=== PATIENT | male | born 1955 | race Caucasian/White ===

== ENCOUNTER 2018-09-26 09:30 | Inpatient (IN) | payer OTHER, BC ==
[~2018-09-26] VITALS: Ht 188 cm; Wt 90.7 kg
[2018-09-26 09:32] VITALS: BP 122/85
--- NOTE | 2018-09-26 09:32 | NUR ---
Patient transferred to bed 9 via wheelchair by tech. RN evaluating patient at bedside.
--- NOTE | 2018-09-26 09:42 | NUR ---
Dr. Christy evaluating patient at bedside.
--- NOTE | 2018-09-26 09:45 | NUR ---
PATIENT PRESENTS TO ED WITH C/O RIGHT HIP PAIN S/P MECHANICAL FALL ----ABRASIONS TO RIGHT KNUCKLES, RIGHT FLANK, RIGHT ELBOW SLIGHT SHORTENING WITH EXTERNAL ROTATION RLE ---PT STATES UNABLE TO INTERNAL ROTATE RIGHT ANKLE---+2 PEDAL PULSE <3 SEC CAP REFILL GRANDDAUGHTER AT BEDSIDE.. DENIES N/V/D; SKIN IS PINK/WARM/DRY; AAOX4 ; LUNGS CLEAR BL; HR EVEN AND REGULAR; PT DENIES ANY FEVER, CP, SOB, OR COUGH AT THIS TIME; PATIENT STATES PAIN OF 9/10 AT THIS TIME; VSS; PATIENT POSITIONED FOR COMFORT; HOB ELEVATED; BEDRAILS UP X2; BED DOWN. ER MD MADE AWARE OF PT STATUS.
[2018-09-26] MEDS ORDERED: NACL 0.9% 1,000 ML IV SCH (09:48)
[2018-09-26] MEDS ORDERED: NEOMYCIN/POLYMYXIN/BACITRACIN 0.9 GM/1 PKT TP ONE (09:50)
[2018-09-26] MEDS ORDERED: ONDANSETRON 4 MG/2 ML VIAL IVP ONE (09:50)
[2018-09-26] MEDS ORDERED: LORazepam 2 MG/ML VIAL IVP ONE (09:50)
[2018-09-26] MEDS ORDERED: MORPHINE SULFATE 4 MG/ML SYR IVP ONE (09:50)
--- NOTE | 2018-09-26 10:10 | NUR ---
1mg ativan wasted prior to infusino as written
[2018-09-26 10:22] LABS: BASOPHILS % (AUTO) 0.3 % (0.0-2.0); EOSINOPHILS # (AUTO) 0.4 K/uL (0-0.4); EOSINOPHILS % (AUTO) 4.3 % (0.0-4.0); HEMATOCRIT 41.7 % (36-52); HEMOGLOBIN 14.3 g/dL (12.0-18.0); LYMPHOCYTES # (AUTO) 1.4 K/uL (2.0-11.5); LYMPHOCYTES % (AUTO) 14.3 % (20.5-51.1); MEAN CORPUSCULAR HEMOGLOBIN 29 pg (27-31); MEAN CORPUSCULAR HGB CONC 34 g/dL (33-37); MEAN CORPUSCULAR VOLUME 85.6 fL (80-94); MONOCYTES # (AUTO) 0.6 K/uL (0.8-1.0); NEUTROPHILS # (AUTO) 7.5 K/uL (1.8-7.7); NEUTROPHILS % (AUTO) 75.1 % (42.2-75.2); PLATELET COUNT (AUTO) 254 K/uL (140-450); RED BLOOD CELL COUNT(AUTO) 4.87 MIL/uL (4.20-6.10); WHITE BLOOD COUNT (AUTO) 10.1 K/uL (4.8-10.8)
--- NOTE | 2018-09-26 10:26 | NUR ---
Patient taken to CT scan via gurney by Saber Hacer.
--- NOTE | 2018-09-26 10:27 | NUR ---
PT TO CT VIA [facility]
[2018-09-26 10:31] LABS: ANION GAP 14.1 (8-16); CARBON DIOXIDE 24.6 mmol/L (21-32); CREATININE 0.9 mg/dL (0.7-1.3); POTASSIUM 3.7 mmol/L (3.5-5.1)
[2018-09-26 10:35] LABS: PROTHROMBIN TIME 10.1 secs (10.8-13.4)
[2018-09-26 10:36] LABS: ALBUMIN 3.3 g/dL (3.4-5.0); TOTAL BILIRUBIN 0.4 mg/dL (0.0-1.0)
--- NOTE | 2018-09-26 10:44 | NUR ---
Patient returned from CT scan. RN re-evaluating patient at bedside.
--- NOTE | 2018-09-26 10:58 | NUR ---
hvac r tech at bedside.
[2018-09-26] MEDS ORDERED: HYDROmorphone 1 MG/ML AMP IVP ONE (11:35)
[2018-09-26] MEDS ORDERED: diphenhydrAMINE 50 MG/ML VIAL IVP ONE (11:35)
--- NOTE | 2018-09-26 11:49 | NUR ---
MEDICATED WRITTEN---WILL CONTINUE TO OBSERVE FOR PAIN CONTROL---PT CURRENTLY SELF REPOSITIONED TO COMFORT----FAMILY REMAINS AT BEDSIDE X2 SR UP----
[2018-09-26] MEDS ORDERED: DOCUSATE SODIUM 100 MG GELCAP PO PRN (12:15)
[2018-09-26] MEDS ORDERED: ACETAMINOPHEN 325 MG TAB PO PRN (12:15)
[2018-09-26] MEDS ORDERED: ONDANSETRON 4 MG/2 ML VIAL IM/IVP PRN (12:15)
[2018-09-26] MEDS ORDERED: MORPHINE SULFATE 2 MG/ML SYR IVP PRN (12:15)
--- NOTE | 2018-09-26 12:39 | NUR ---
PT'S GRANDDAUGHTER HAS BEEN IN ROOM WITH PT---ADMITS PT ASLEEP THIS TIME, HAS NOT COMPLIANED OF PAIN AT THIS TIME
--- NOTE | 2018-09-26 12:50 | NUR ---
RECEIVED REPORT FROM ED RN. PT IN STABLE CONDITION. AOX4. STATES TOLERABLE PAIN, NO NEED FOR MEDICATION. DX RT HIP FRACTURE. RT LEG IS EXTERNALLY ROTATED AND SHORTENED COMPARED TO LEFT LEG. ABRASIONS ON RT FLANK, RT HIP, RLE FROM FALL TODAY. LUNGS CTA. HEART RHYTHM REGULAR. BOWEL SOUNDS ACTIVE. PLACED ON FALL PRECAUTIONS. ALL SAFETY PRECAUTIONS IN PLACE, WILL CONTINUE TO MONITOR.
[2018-09-26 12:51] LABS: MAGNESIUM 1.9 mg/dL (1.8-2.4); PHOSPHORUS 1.8 mg/dL (2.5-4.9); THYROID STIMULATING HORMONE 2.6 uIU/mL (0.34-3.74)
--- NOTE | 2018-09-26 12:55 | NUR ---
Pt transferred to Med/Surg via [facility] TO ROOM 125 A; REPORT GIVEN TO PRIYA MANZANARES
[2018-09-26 13:01] VITALS: BP 135/84
[2018-09-26] MEDS: NACL 0.9% 1,000 ML IV SCH (13:29)
[2018-09-26] MEDS: MORPHINE SULFATE 2 MG/ML SYR IVP PRN ×2 (15:13→20:48)
--- NOTE | 2018-09-26 15:13 | NUR ---
PT C/O 01/08 RT HIP PAIN. ADMINISTERED MORPHINE PER MD ORDERS.
--- NOTE | 2018-09-26 15:37 | NUR ---
PHOTOS TAKEN OF ABRASIONS ON RT LOWER EXTREMITY, RIGHT KNUCKLES, RT ELBOW. WOUND CARE PROVIDED, AND COVERED WITH TEGADERM. PT C/O PAIN WHEN ATTEMPTING TO LOG ROLL HIM TO TAKE PHOTOS OF ABRASIONS ON RT FLANK (ABRASION THERE PER ED RN). DOES NOT WANT TO TURN AT THIS TIME. WILL ENDORSE.
[2018-09-26 16:00] VITALS: BP 147/80
[2018-09-26 16:08] LABS: APPEARANCE,URINE CLEAR (CLEAR); BILIRUBIN,URINE NEGATIVE (NEGATIVE); BLOOD, URINE NEGATIVE (NEGATIVE); COLOR,URINE YELLOW (YELLOW); LEUKOCYTE ESTERASE ,URINE NEGATIVE (NEGATIVE); NITRITE, URINE NEGATIVE (NEGATIVE); UGLUCOSE NEGATIVE (NEGATIVE)
[2018-09-26 16:20] LABS: BARBITURATE, URINE NEG. ng/ml (NEG <=200); BENZODIAZEPINE, URINE NEG. ng/mL (NEG <=200); CANNABINOID, URINE POS. ng/mL (NEG <=50); COCAINE, URINE NEG. ng/mL (NEG <=300); OPIATE, URINE NEG. ng/mL (NEG <=2000); PHENCYCLIDINE SCREEN,URINE NEG. ng/mL (NEG <=25)
--- NOTE | 2018-09-26 17:12 | NUR ---
SALONI RODRÍGUEZ WORKING ON OBTAINING EUCEDA'S TRACTION SETUP.
--- NOTE | 2018-09-26 17:49 | NUR ---
PATIENT REFUSED RACHEL CATH. ABLE TO URINATE VIA URINAL.
[2018-09-26] MEDS ORDERED: ALBUTEROL SULFATE/IPRATROPIU 3 ML SOL IH PRN (18:00)
[2018-09-26] MEDS: HYDROcodone/APAP 5/325 MG 1 TAB TAB PO PRN ×2 (18:01→23:02)
--- NOTE | 2018-09-26 19:21 | NUR ---
ENDORSED POC TO LEAD APPLICATION ARCHITECT RN. PT IN STABLE CONDITION. ENDORSED TO OBTAIN CONSENT WHEN DR. BROCK HAS EXPLAINED PROCEDURE TO PT. ENDORSED OF PLAN FOR EUCEDA'S TRACTION.
--- NOTE | 2018-09-26 19:22 | NUR ---
RECEIVED REPORT FROM DAY SHIFT NURSE PRIYA-RN AT BEDSIDE. PT RESTING IN BED, AOX4, ON ROOM AIR WITH LEFT AC #18G. DISCUSSED PLAN OF CARE AND PT VERBALIZED UNDERSTANDING. NO S/S OF RESPIRATORY DISTRESS OR DISCOMFORT NOTED AT THIS TIME. MULTIPLE WOUNDS DUE TO FALL- PLEASE SEE WOUND ASSESSMENT. BED IN LOWEST POSITION, BED BREAKS ON, BOTH SIDE RAILS UP AND FALL PRECAUTIONS IN PLACE. BEDSIDE TABLE AND CALL LIGHT ARE WITHIN REACH. WILL CONTINUE TO MONITOR.
[2018-09-26 20:00] VITALS: BP 119/70
--- NOTE | 2018-09-26 20:00 | NUR ---
VITAL SIGNS TAKEN AND TOLERATED WELL. PT C/O PAIN 12/08 AND WILL MEDICATE. NO S/S OF RESPIRATORY DISTRESS OR DISCOMFORT NOTED AT THIS TIME. WILL CONTINUE TO MONITOR.
--- NOTE | 2018-09-26 20:49 | NUR ---
SCHEDULED MEDICATION HEPARIN SUBQ GIVEN AND TOLERATED WELL. MEDICATED WITH MORPHINE FOR PAIN. PT TOLERATED WELL. NO S/S OF RESPIRATORY DISTRESS OR DISCOMFORT NOTED AT THIS TIME. WILL CONTINUE TO MONITOR.
[2018-09-26] MEDS ORDERED: ZOLPIDEM 5 MG TAB PO PRN (21:00)
--- NOTE | 2018-09-26 23:02 | NUR ---
PT CONTINUES TO C/O PAIN 11/08 AND MEDICATED WITH NORCO. PT TOLERATED WELL. NO S/S OF RESPIRATORY DISTRESS OR DISCOMFORT NOTED AT THIS TIME. WILL CONTINUE TO MONITOR.
[2018-09-27] VITALS (7 sets, daily range): BP systolic 97–139; BP diastolic 67–92
--- NOTE | 2018-09-27 | NUR ---
VITAL SIGNS TAKEN AND TOLERATED WELL. NO S/S OF RESPIRATORY DISTRESS OR DISCOMFORT NOTED AT THIS TIME. WILL CONTINUE TO MONITOR.
--- NOTE | 2018-09-27 02:00 | NUR ---
PT CONTINUES TO SLEEP IN BED. NO S/S OF RESPIRATORY DISTRESS OR DISCOMFORT NOTED AT THIS TIME. WILL CONTINUE TO MONITOR.
--- NOTE | 2018-09-27 04:00 | NUR ---
VITAL SIGNS TAKEN AND TOLERATED WELL. NO S/S OF RESPIRATORY DISTRESS OR DISCOMFORT NOTED AT THIS TIME. WILL CONTINUE TO MONITOR.
[2018-09-27] MEDS: NACL 0.9% 1,000 ML IV SCH ×2 (04:15→21:32)
--- NOTE | 2018-09-27 06:00 | NUR ---
PT RESTING IN BED. NO S/S OF RESPIRATORY DISTRESS OR DISCOMFORT NOTED AT THIS TIME. WILL CONTINUE TO MONITOR.
--- NOTE | 2018-09-27 06:50 | NUR ---
DR. BROCK IN TO SEE PT.
--- NOTE | 2018-09-27 06:53 | NUR ---
HAD ORDER FOR BUCKS TRACTION.I PUT IT W/7 LBS. CAME .I ASKED HIM IF BUCKS TRACTION I PUT IT CORRECT AND HE SAID YES.PT WILL HAVE SURGERY VANESSA PER .
--- NOTE | 2018-09-27 07:14 | NUR ---
ENDORSED PT CARE TO DAY SHIFT NURSE MICHAEL FOR CONTINUITY OF CARE.
--- NOTE | 2018-09-27 07:15 | NUR ---
RECEIVED REPORT FROM NIGHT NURSE. PATIENT IS ALERT AWAKE AND ORIENTED X4. RESPIRATIONS ARE EVEN AND UNLABORED WITH NO SIGNS OF DISTRESS. IV IS INTACT, PATENT AND INFUSING IVF. PATIENT HAS EUCEDA TRACTION IN PLACE. COMPLAINS OF PAIN AT FRACTURE SITE. PLAN OF CARE WAS REVIEWED WITH PATIENT, HE VERBALIZED UNDERSTANDING. SAFETY MEASURE IN PLACE, BED IS IN LOW POSITION WITH CALL LIGHT WITHIN REACH. WILL CONTINUE TO MONITOR.
--- NOTE | 2018-09-27 08:35 | NUR ---
PATIENT HAS BEEN SCREENED AND CATEGORIZED MODERATE NUTRITION RISK. PATIENT WILL BE SEEN WITHIN 3-5 DAYS OF ADMISSION. 09/29/18JARED GONZALEZ RD
[2018-09-27] MEDS: MORPHINE SULFATE 2 MG/ML SYR IVP PRN ×3 (08:36→20:29)
[2018-09-27 08:37] LABS: ANION GAP 10.5 (8-16); CREATININE 0.8 mg/dL (0.7-1.3); POTASSIUM 3.5 mmol/L (3.5-5.1)
[2018-09-27 08:45] LABS: CHOL/HDL RATIO 3.3 (1-4.5)
[2018-09-27 08:51] LABS: BASOPHILS % (AUTO) 0.2 % (0.0-2.0); EOSINOPHILS # (AUTO) 0.1 K/uL (0-0.4); EOSINOPHILS % (AUTO) 0.9 % (0.0-4.0); HEMOGLOBIN 13.9 g/dL (12.0-18.0); LYMPHOCYTES # (AUTO) 1.3 K/uL (2.0-11.5); LYMPHOCYTES % (AUTO) 11.1 % (20.5-51.1); MEAN CORPUSCULAR HEMOGLOBIN 29 pg (27-31); MEAN CORPUSCULAR HGB CONC 34 g/dL (33-37); MEAN CORPUSCULAR VOLUME 85.6 fL (80-94); MONOCYTES # (AUTO) 0.9 K/uL (0.8-1.0); MONOCYTES % (AUTO) 7.8 % (1.7-9.3); NEUTROPHILS # (AUTO) 9.7 K/uL (1.8-7.7); PLATELET COUNT (AUTO) 229 K/uL (140-450); RED BLOOD CELL COUNT(AUTO) 4.79 MIL/uL (4.20-6.10); RED CELL DISTRIBUTION WIDTH 12.8 % (11.6-13.7); WHITE BLOOD COUNT (AUTO) 12.1 K/uL (4.8-10.8)
[2018-09-27] MEDS ORDERED: MEDICATION REC. PHARMACY CONS. 1 EA MISC MC PRN ×2 (09:15)
--- NOTE | 2018-09-27 09:50 | NUR ---
TOOK PATIENT TO RADIOLOGY FOR CT OF CHEST, ABD, AND PELVIS. PATIENT TOLERATED PROCEDURE WELL, NOW RESTING. WILL CONTINUE TO MONITOR.
[2018-09-27] MEDS ORDERED: MAGNESIUM OXIDE 400 MG TAB PO ONE (10:30)
[2018-09-27] MEDS ORDERED: SODIUM PHOS / POTASSIUM PHOS 1 PKT PDR PO SCH (10:42)
[2018-09-27] MEDS: NEOMYCIN/POLYMYXIN/BACITRACIN OIN 15 GM TUBE TP SCH (11:40)
[2018-09-27] MEDS: SODIUM PHOS / POTASSIUM PHOS 1 PKT PDR PO SCH ×2 (13:14→18:08)
[2018-09-27 13:38] LABS: T4 (THYROXINE) 6.8 ug/dL (4.5-12.0)
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
[2018-09-27] MEDS ORDERED: APAP/BUTAL/CAFF 325/50/40 MG 1 TAB PO SCH (18:00)
--- NOTE | 2018-09-27 19:29 | NUR ---
GAVE REPORT TO BUILDING DISMANTLER NURSE. PATIENT IS STABLE.
--- NOTE | 2018-09-27 19:30 | NUR ---
ASSUMED CARE OF PATIENT, AWAKE, ALERT AND ORIENTED. NO COMPLAINS. FAMILY AT BEDSIDE. CALL LIGHT WITHIN REACH.
--- NOTE | 2018-09-27 20:00 | NUR ---
VITAL SIGNS STABLE. AFEBRILE. CARE BOARD UPDATED. PLAN OF CARE DISCUSSED WITH PATIENT AND FAMILY MEMBER, VERBALIZED UNDERSTANDING WELL. CALL LIGHT WITHIN REACH.
--- NOTE | 2018-09-27 21:00 | NUR ---
DUE MEDS GIVEN. PAIM MEDS GIVEN ORDERED. CALL LIGHT WITHIN REACH.
--- NOTE | 2018-09-27 23:47 | NUR ---
VITAL SIGNS STABLE. NPO FOR SURGERY IDALMIS. AFEBRILE. CALL LIGHT WITHIN REACH.
[2018-09-27] MEDS: HYDROcodone/APAP 5/325 MG 1 TAB TAB PO PRN (23:53)
[2018-09-28] MEDS: MORPHINE SULFATE 2 MG/ML SYR IVP PRN ×5 (00:27→23:41)
[2018-09-28 04:29] VITALS: BP 102/78
--- NOTE | 2018-09-28 04:32 | NUR ---
VITAL SIGNS STABLE. NPO NOW FOR SURGERY IN AM. CALL LIGHT WITHIN REACH. CONSENT SIGNED FOR SURGERY.
--- NOTE | 2018-09-28 06:31 | NUR ---
NO COMPLAINS. NPO FOR SURGERY TODAY AT 1300. CALL LIGHT WITHIN REACH. PREOP CHECKLIST INITIATED.
[2018-09-28 06:51] LABS: ANION GAP 11.8 (8-16); CARBON DIOXIDE 25.8 mmol/L (21-32); CREATININE 0.8 mg/dL (0.7-1.3); POTASSIUM 3.6 mmol/L (3.5-5.1)
[2018-09-28 06:54] LABS: PHOSPHORUS 2.6 mg/dL (2.5-4.9)
--- NOTE | 2018-09-28 07:17 | NUR ---
ENDORSED CARE AT BEDSIDE WITH LUZ MANZANARES, PATIENT IN STABLE CONDITION.
--- NOTE | 2018-09-28 07:18 | NUR ---
Received bedside report from pm nurse Noemi. Pt resting in bed, awake, no signs of distress. RLE Lock's traction in place with 7lb weight hanging freely. Call light within reach.
[2018-09-28 07:29] LABS: BASOPHILS % (AUTO) 0.2 % (0.0-2.0); EOSINOPHILS # (AUTO) 0.6 K/uL (0-0.4); EOSINOPHILS % (AUTO) 5.2 % (0.0-4.0); HEMATOCRIT 41.9 % (36-52); HEMOGLOBIN 14.4 g/dL (12.0-18.0); LYMPHOCYTES # (AUTO) 1.5 K/uL (2.0-11.5); LYMPHOCYTES % (AUTO) 13.5 % (20.5-51.1); MEAN CORPUSCULAR HEMOGLOBIN 30 pg (27-31); MEAN CORPUSCULAR HGB CONC 34 g/dL (33-37); MEAN CORPUSCULAR VOLUME 86.1 fL (80-94); MONOCYTES % (AUTO) 8.8 % (1.7-9.3); NEUTROPHILS # (AUTO) 7.9 K/uL (1.8-7.7); NEUTROPHILS % (AUTO) 72.3 % (42.2-75.2); PLATELET COUNT (AUTO) 215 K/uL (140-450); RED BLOOD CELL COUNT(AUTO) 4.87 MIL/uL (4.20-6.10); RED CELL DISTRIBUTION WIDTH 12.9 % (11.6-13.7); WHITE BLOOD COUNT (AUTO) 10.9 K/uL (4.8-10.8)
[2018-09-28 08:00] VITALS: BP 100/65
--- NOTE | 2018-09-28 09:07 | NUR ---
Heparin held d/t surgical procedure this pm.
[2018-09-28] MEDS: NEOMYCIN/POLYMYXIN/BACITRACIN OIN 15 GM TUBE TP SCH (09:51)
--- NOTE | 2018-09-28 11:30 | NUR ---
Report given to nurse Abril. Pt in bed, no signs of distress.
--- NOTE | 2018-09-28 11:45 | NUR ---
RECEIVED BEDSIDE REPORT FROM LEIGHTON WEEKS FOR CONTINUITY OR CARE. PATIENT IS RESTING ON BED AT THIS TIME. RESPIRATION EVEN AND UNLABORED. ON RA. NO SIGNS OF DISTRESS NOTED. EUCEDA'S TRACTION INN PLACE WITH 7 LB WEIGHT HANDING FREELY. INSTRUCTED PATIENT TO USE THE CALL LIGHT FOR ANY ASSISTANCE AND PATIENT WAS AWARE. BED IN LOW POSITION AND CALL LIGHT WITHIN REACH.
[2018-09-28 12:00] VITALS: BP 112/70
--- NOTE | 2018-09-28 12:55 | NUR ---
PATIENT IS OFF UNIT TO THE OR ACCOMPANIED BY OR NURSE ORNELAS. PATIENT IS IN A STABLE CONDITION.
[2018-09-28] MEDS ORDERED: BUPIVACAINE-MPF 0.25% 30 ML VIAL INJ ONE (12:58)
[2018-09-28] MEDS ORDERED: BACITRACIN 50000 UNITS/1 VIAL ONE (12:58)
[2018-09-28] MEDS ORDERED: PROPOFOL 200 MG/20 ML VIAL IV ONE (13:15)
[2018-09-28] MEDS ORDERED: DEXAMETHASONE 4 MG/ML VIAL ONE (13:15)
[2018-09-28] MEDS ORDERED: DESFLURANE 240 ML BTL INH ONE (13:15)
[2018-09-28] MEDS ORDERED: ONDANSETRON 4 MG/2 ML VIAL ONE ×2 (13:15→15:40)
[2018-09-28] MEDS ORDERED: fentaNYL 0.05 MG/ML VIAL ONE (13:23)
[2018-09-28] MEDS ORDERED: HYDROmorphone 1 MG/ML AMP IVP PRN (14:15)
[2018-09-28] MEDS ORDERED: ONDANSETRON 4 MG/2 ML VIAL IVP PRN (14:15)
--- NOTE | 2018-09-28 15:50 | NUR ---
PATIENT CAME BACK TO FLOOR ACCOMPANIED WITH OR NURSE JOHNSON. VITAL SIGNS TAKEN; TEMP. 97.8, BP 121/71, SPO2 95% ON RA, PULSE 88, AND RR 18. PATIENT DENIES PAIN AT THIS TIME. STATED THAT HE FEELS DISCOMFORT ON SURGICAL SITE, BUT TOLERABLE. PATIENT COMPLAINED THAT HIS THROAT IS DRY, ICE CHIPS PROVIDED. TELE MONITOR IN PLACE. SAFETY MEASURES IN PLACE. BED IN LOW POSITION AND CALL LIGHT WITHIN REACH.
[2018-09-28 16:00] VITALS: BP 121/71
[2018-09-28] MEDS: NACL 0.9% 1,000 ML IV SCH (16:22)
--- NOTE | 2018-09-28 16:24 | NUR ---
PATIENT COMPLAINED OF 7/10 PAIN ON HIS SURGICAL SITE, MEDICATED WITH PRN MORPHINE. PATIENT TOLERATED WELL. SAFETY MEASURES IN PLACE.
--- NOTE | 2018-09-28 16:45 | NUR ---
EDUCATED PATIENT ON HOW TO USE THE INCENTIVE SPIROMETER, AND INSTRUCTED PATIENT TO PRACTICE 3X A DAY AND OR WHEN AWAKE AND TOLERATED. PATIENT VERBALIZED UNDERSTANDING. PATIENT IS TALKING TO FAMILY MEMBERS AT BEDSIDE. NO SIGNS OF DISTRESS NOTED. SAFETY MEASURES IN PLACE.
--- NOTE | 2018-09-28 16:48 | NUR ---
FAXED THE REQUEST FOR SNF TO [facility] [phone]
--- NOTE | 2018-09-28 17:50 | NUR ---
IV INFILTRATED. D/C IV AND CANNULA INTACT, NO BLEEDING AT IV SITE. STARTED NEW IV ON LFA 22G, CLEAN AND PATENT, CONTINUING INFUSE PER MD ORDER. PATIENT TOLERATED WELL. NO SIGNS OF STRESS NOTED. FAMILY IS AT BEDSIDE. INSTRUCTED PATIENT TO USE THE CALL LIGHT FOR ANY ASSISTANCE.
--- NOTE | 2018-09-28 18:00 | NUR ---
DR WOODS IS TALKING TO PATIENT AND PATIENT'S FAMILY AT BEDSIDE. NO SIGNS OF DISTRESS NOTED. SAFETY MEASURES IN PLACE.
--- NOTE | 2018-09-28 18:36 | NUR ---
PATIENT IS TALKING TO FAMILY AT BEDSIDE. NO SIGNS OF DISTRESS NOTED. TELE MONITOR IN PLACE. SAFETY MEASURES IN PLACE. BED IN LOW POSITION AND CALL LIGHT WITHIN REACH.
--- NOTE | 2018-09-28 19:11 | NUR ---
ENDORSED PATIENT AT BEDSIDE TO AUDIOMETRIST NURSE FOR CONTINUITY OF CARE. PATIENT IS IN STABLE CONDITION.
--- NOTE | 2018-09-28 19:13 | NUR ---
Received endorsement from AM shift RN; patient A/Ox4, able to make needs known, bedbound s/p right hip bipolar prosthesis. Patient watching TV. Introduced self, updated board. No SOB or distress noted, on room air. IV site left forearm, 22 gauge, intact and infusing IVF at 60mL/hr. Skin noted with multiple abrasions. Bed in the lowest position, call light within reach. Initial assessment done. Will continue to monitor.
[2018-09-28 20:00] VITALS: BP 126/78
--- NOTE | 2018-09-28 21:01 | NUR ---
Vitals taken, meds given, tolerated well. Will continue to monitor. Addendum: 09/29/18 at 0106 by Pierre Suero RN Correction - Due meds given
--- NOTE | 2018-09-28 23:45 | NUR ---
Due meds given, vitals taken. No distress noted.
[2018-09-29] VITALS: BP 108/71
--- NOTE | 2018-09-29 02:50 | NUR ---
Rounds done, patient asleep, eyes closed, visible chest rise and fall noted.
[2018-09-29] MEDS: HYDROcodone/APAP 5/325 MG 1 TAB TAB PO PRN ×3 (03:09→20:52)
[2018-09-29] MEDS: MELATONIN 3 MG TAB PO PRN (03:09)
[2018-09-29 04:00] VITALS: BP 107/69
--- NOTE | 2018-09-29 04:30 | NUR ---
Vitals taken, no distress noted. Assisted patient to go to the bathroom. Patient had a BM at this time. Addendum: 09/29/18 at 0451 by Pierre Suero RN Addendum - charted on wrong patient.
--- NOTE | 2018-09-29 04:36 | NUR ---
Vitals taken, no SOB or distress noted. Patient asleep, visible chest rise and fall noted.
[2018-09-29] MEDS: NACL 0.9% 1,000 ML IV SCH (05:55)
[2018-09-29 06:29] LABS: BASOPHILS % (AUTO) 0.2 % (0.0-2.0); EOSINOPHILS % (AUTO) 0.2 % (0.0-4.0); HEMATOCRIT 39.3 % (36-52); HEMOGLOBIN 13.4 g/dL (12.0-18.0); LYMPHOCYTES # (AUTO) 1.5 K/uL (2.0-11.5); LYMPHOCYTES % (AUTO) 10.1 % (20.5-51.1); MEAN CORPUSCULAR HEMOGLOBIN 29 pg (27-31); MEAN CORPUSCULAR HGB CONC 34 g/dL (33-37); MEAN CORPUSCULAR VOLUME 85.7 fL (80-94); MONOCYTES # (AUTO) 1.6 K/uL (0.8-1.0); MONOCYTES % (AUTO) 11.3 % (1.7-9.3); NEUTROPHILS # (AUTO) 11.3 K/uL (1.8-7.7); NEUTROPHILS % (AUTO) 78.2 % (42.2-75.2); PLATELET COUNT (AUTO) 246 K/uL (140-450); RED BLOOD CELL COUNT(AUTO) 4.59 MIL/uL (4.20-6.10); RED CELL DISTRIBUTION WIDTH 12.6 % (11.6-13.7); WHITE BLOOD COUNT (AUTO) 14.4 K/uL (4.8-10.8)
--- NOTE | 2018-09-29 06:41 | NUR ---
Frequent checks made; patient is watching TV. No distress noted.
[2018-09-29 06:47] LABS: ANION GAP 10.2 (8-16); CARBON DIOXIDE 26.7 mmol/L (21-32); CREATININE 0.9 mg/dL (0.7-1.3); POTASSIUM 3.9 mmol/L (3.5-5.1)
[2018-09-29 06:52] LABS: MAGNESIUM 1.9 mg/dL (1.8-2.4); PHOSPHORUS 3.9 mg/dL (2.5-4.9)
--- NOTE | 2018-09-29 07:03 | NUR ---
Endorsed patient to AM shift RN for continuity of care. Patient in stable condition.
--- NOTE | 2018-09-29 07:05 | NUR ---
RECEIVED BEDSIDE REPORT FROM SLITTER OPERATOR RN FOR CONTINUITY OF CARE. PT IN STABLE CONDITION. AOX4. INTERACTING APPROPRIATELY. COOPERATIVE. STATES TOLERABLE PAIN AT SURGICAL SITE. S/P RT HIP BIPOLAR PROTHESIS SURGERY. DRESSING C/D/I. NO S/S DISTRESS. RESPIRATIONS EVEN AND UNLABORED. HEART RHYTHM REGULAR. ACTIVE BS IN ALL QUADRANTS. ABDOMEN SOFT AND NON-DISTENDED. ABRASIONS ON SKIN THROUGHOUT FROM FALL. CSM INTACT. PEDAL PULSES 2+ BILATERALLY. NO EDEMA. ABDUCTION PILLOW IN PLACE. IV SITE PATENT AND ASYMPTOMATIC, INFUSING IVF PER MD ORDERS. ALL SAFETY PRECAUTIONS IN PLACE, WILL CONTINUE TO MONITOR.
[2018-09-29 08:00] VITALS: BP 114/70
[2018-09-29] MEDS: NEOMYCIN/POLYMYXIN/BACITRACIN OIN 15 GM TUBE TP SCH (08:33)
--- NOTE | 2018-09-29 08:41 | NUR ---
SCHEDULED MEDICATIONS ADMINISTERED. PT RESTING IN BED, NO C/O PAIN OR DISCOMFORT. INTERACTING APPROPRIATELY. ALL SAFETY PRECAUTIONS IN PLACE, WILL CONTINUE TO MONITOR.
--- NOTE | 2018-09-29 09:30 | NUR ---
PT DID IS WHILE I WAS IN THE ROOM, PT WAS ABLE TO DO 3000ML WITH NO DISTRESS. PT WAS WELL & RELAXED & SAID HE DID NOT FEEL ANY SOB. WILL KEEP MONITORING
--- NOTE | 2018-09-29 09:34 | NUR ---
PT UP IN BED, WITH PHYSICAL THERAPY AT SIDE.
--- NOTE | 2018-09-29 10:35 | NUR ---
PATIENT STATES HE IS COMFORTABLE IN CHAIR. SPOKE WITH PHYSICAL THERAPIST SCOTT JUST NOW-SHE WILL BE BACK TO HELP PATIENT BACK TO BED LATER.
[2018-09-29 12:00] VITALS: BP 101/67
[2018-09-29] MEDS: MORPHINE SULFATE 2 MG/ML SYR IVP PRN (12:10)
--- NOTE | 2018-09-29 12:13 | NUR ---
ADMINISTERED MORPHINE FOR C/O 03/10 PAIN. PATIENT HAD JUST WALKED WITH PHYSICAL THERAPY. OFFERED COLACE- PT HAS NOT HAD BM SINCE ADMISSION. PT REFUSED.
--- NOTE | 2018-09-29 12:31 | NUR ---
Spoke with Eve Bajwa insurance adjustor starting today pt is not covered with [facility]. Pt has [employer] but he has his card at home. His grand daughter Marina will look for it and give it to the pt. Eve Bajwa will follow up this afternoon with the patient's [employer] card and verify it once she gets it from the pt.
--- NOTE | 2018-09-29 13:17 | NUR ---
PT RESTING IN BED, WITH GRANDDAUGHTER AT BEDSIDE. IN STABLE CONDITION. ALL SAFETY PRECAUTIONS IN PLACE, WILL CONTINUE TO MONITOR.
--- NOTE | 2018-09-29 14:39 | NUR ---
PT STATES PAIN IS WELL-CONTROLLED NOW.
--- NOTE | 2018-09-29 15:11 | NUR ---
Clinicals faxed to [facility] .
--- NOTE | 2018-09-29 15:54 | NUR ---
PT CONTINUES TO STATE TOLERABLE PAIN LEVELS.
[2018-09-29 16:00] VITALS: BP 101/66
--- NOTE | 2018-09-29 19:25 | NUR ---
ENDORSED POC TO LAND DEPARTMENT HEAD RN. PT IN STABLE CONDITION.
--- NOTE | 2018-09-29 19:26 | NUR ---
RECEIVED REPORT FROM DAY SHIFT RN. PATIENT STABLE WITHOUT DISTRESS ON RA.
--- NOTE | 2018-09-29 19:27 | NUR ---
RECEIVED REPORT FROM DAY SHIFT RN, PATIENT STABLE ON RA, ABDUCTION PILLOW IN PLACE. NO COMPLAINT OF PAIN AT THIS TIME.
[2018-09-29 20:00] VITALS: BP 113/71
--- NOTE | 2018-09-29 20:52 | NUR ---
PATIENT C/O PAIN 09/08 WILL MEDICATE PER PRN ORDERS. Addendum: 09/29/18 at 2230 by Adriana Phillips RN ALSO ADMINSTERED SCHEDULED MEDICATION AT THIS TIME.
--- NOTE | 2018-09-29 22:30 | NUR ---
PATIENT RESTING COMFORTABLY IN BED, WITH NO C/O PAIN AT THIS TIME.
[2018-09-30 00:04] VITALS: BP 106/61
--- NOTE | 2018-09-30 00:07 | NUR ---
VITAL SIGNS STABLE, PATIENT RESTING, NO SIGNS OF DISTRESS ON RA.
[2018-09-30] MEDS: NACL 0.9% 1,000 ML IV SCH ×2 (01:00→16:12)
--- NOTE | 2018-09-30 02:30 | NUR ---
EMPTIED URINAL, PATIENT WAS SLEEPIGN BUT WOKE EASILY. NO SIGNS OF DISTRESS. NO C/O PAIN.
--- NOTE | 2018-09-30 04:06 | NUR ---
PATIENT SLEEPING, NO SIGNS OF DISTRESS ON RA.
--- NOTE | 2018-09-30 05:55 | NUR ---
PATIENT SLEEPING, NO SIGNS OF DISTRESS ON RA. WILL CONTINUE TO MONITOR.
--- NOTE | 2018-09-30 06:30 | NUR ---
PATIENT AWAKE. NO C/O PAIN, NO DISTRESS ON ROOM AIR.
[2018-09-30 06:50] LABS: MAGNESIUM 1.9 mg/dL (1.8-2.4); PHOSPHORUS 2.6 mg/dL (2.5-4.9)
[2018-09-30 07:01] LABS: ANION GAP 13.6 (8-16); CARBON DIOXIDE 23.9 mmol/L (21-32); POTASSIUM 3.5 mmol/L (3.5-5.1)
[2018-09-30 07:18] LABS: BASOPHILS % (AUTO) 0.3 % (0.0-2.0); EOSINOPHILS # (AUTO) 0.5 K/uL (0-0.4); EOSINOPHILS % (AUTO) 4.6 % (0.0-4.0); HEMATOCRIT 36.3 % (36-52); HEMOGLOBIN 12.5 g/dL (12.0-18.0); LYMPHOCYTES # (AUTO) 1.7 K/uL (2.0-11.5); LYMPHOCYTES % (AUTO) 16.5 % (20.5-51.1); MEAN CORPUSCULAR HEMOGLOBIN 30 pg (27-31); MEAN CORPUSCULAR HGB CONC 35 g/dL (33-37); MEAN CORPUSCULAR VOLUME 86.4 fL (80-94); MONOCYTES # (AUTO) 0.8 K/uL (0.8-1.0); MONOCYTES % (AUTO) 7.9 % (1.7-9.3); NEUTROPHILS # (AUTO) 7.2 K/uL (1.8-7.7); NEUTROPHILS % (AUTO) 70.7 % (42.2-75.2); PLATELET COUNT (AUTO) 239 K/uL (140-450); RED CELL DISTRIBUTION WIDTH 12.8 % (11.6-13.7); WHITE BLOOD COUNT (AUTO) 10.2 K/uL (4.8-10.8)
--- NOTE | 2018-09-30 07:20 | NUR ---
GAVE BEDSIDE REPORT TO DAY SHIFT RN. PATIENT IN STABLE CONDITION.
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
[2018-09-30 08:00] VITALS: BP 114/69
[2018-09-30] MEDS: NEOMYCIN/POLYMYXIN/BACITRACIN OIN 15 GM TUBE TP SCH (09:00)
[2018-09-30] MEDS ORDERED: HYDR-5092 PO (09:02)
[2018-09-30] MEDS ORDERED: XAR10 PO (09:02)
--- NOTE | 2018-09-30 09:06 | NUR ---
Called [facility] spoke with Tabby SOUZA. Patient doesn't need AUTH for out patient PT.
--- NOTE | 2018-09-30 09:09 | NUR ---
Called [facility] ext [phone] spoke with Johanne from out patient. Patient needs to bring the RX for PT and make appointment. Hours for PT M-F starts from [phone] and saturdays [phone].
[2018-09-30] MEDS: HYDROcodone/APAP 5/325 MG 1 TAB TAB PO PRN ×2 (09:13→13:56)
--- NOTE | 2018-09-30 09:26 | NUR ---
PT IS WORKING WITH PHYS THERAPY AT THIS TIME.
--- NOTE | 2018-09-30 09:47 | NUR ---
NOTIFIED DR TURCIOS OF PT'S NEED TO HAVE A WALKER AND BEDSIDE COMMODE AT HOME. HE SAID HE WILL HAVE NAVAL INSPECTOR TO OBTAIN THESE ITEMS FOR PT.
--- NOTE | 2018-09-30 10:11 | NUR ---
PAGED DR BROCK REGARDING WHAT HE WOULD LIKE TO BE DONE WITH PT'S SURGICAL DRESSING OVER HIS R HIP INCISION, PT IS DISCHARGING TODAY. AWAITING CALL BACK.
--- NOTE | 2018-09-30 11:00 | NUR ---
PT'S FAMILY VISITING AT BEDSIDE AND TALKING WITH DR TURCIOS.
--- NOTE | 2018-09-30 11:14 | NUR ---
PHOTOS TAKEN OF PT'S INCISION AND ORIGINAL ABRASIONS FOR DOCUMENTATION. INCISION COVERED BY A NEW CLEAN DRY DRESSING.
--- NOTE | 2018-09-30 11:43 | NUR ---
JUST SPOKE WITH DR TURCIOS, HE SAYS THAT PT IS GOING TO BE TRANSFERRED TO [facility] FOR PHYSICAL THERAPY, INSTEAD OF DC HOME. WAITING FOR A BED AT [facility]. I ALREADY REMOVED PT'S IV IN ANTICIPATION OF DC, DR TURCIOS SAYS NO NEED TO START ANOTHER IV, SINCE PT IS NOT GETTING ANY IV MEDICATIONS.
--- NOTE | 2018-09-30 12:37 | NUR ---
Spoke with Pat Admission Liason from [facility] . They will get AUTH from [facility] and they will call me back for the room number.
--- NOTE | 2018-09-30 13:17 | NUR ---
Spoke with Georgia SOUZA [facility] , I asked her for transportation AUTH for pt to be transported to [facility]. Per Georgia SOUZA pt doesn't need an AUTH for transportation. She referred me to benefits and spoke with Johanne. Per Johanne pt will pay 10% for the transportation after deductibles are met. Informed pt about this payment and pt will go to [facility] with one of his family member by car.
--- NOTE | 2018-09-30 13:44 | NUR ---
PT WALKING WITH PHYSICAL THERAPY.
--- NOTE | 2018-09-30 13:56 | NUR ---
Just spoke with Pat Admission Liason from [facility] . They are just waiting for the AUTH from [facility]. They will call me and if after 1630 they will call [facility] nurses station for the room number.
[2018-09-30 15:41] VITALS: BP 104/66
[2018-09-30] MEDS ORDERED: PNEUMOCOCCAL VACCINE 23 MCG/0.5 ML VIAL IMVAC SCH (16:15)
--- NOTE | 2018-09-30 16:22 | NUR ---
PNEUMONIA VACCINE ADMINISTERED IN THE L DELTOID.
--- NOTE | 2018-09-30 19:30 | NUR ---
PT ENDORSED TO HAT FINISHING MATERIALS PREPARER NURSE IN STABLE CONDITION.
--- NOTE | 2018-09-30 19:31 | NUR ---
RECEIVED PT IN STABLE CONDITION FROM AM NURSE. PT IS AWAKE,ALERT AND ORIENTED X4. MED SURG PT. BEDREST . S/P RT HIP ORIF. WITH DRESSING DRY AND CLEAN ON THE RT HIP. ABDUCTOR PILLOW IN PLACED. DENIES ANY DISCOMFORT NOR PAIN NOTED. NO IV ACCESS. [facility] AND PT IS AWARE. BED ON LOWEST POSITION. SIDE RIALS UP X2.FREQUENT ROUNDS NEEDED. CALL LIGHT WITHIN EASY REACH. WILL CONTINUE TO MONITOR.
--- NOTE | 2018-09-30 20:49 | NUR ---
PT HAD THE HEPARIN SUBQ ON THE LT LOWER ABDOMEN. NO C/O ANY PAIN . WILL CONTINUE TO MONITOR.
--- NOTE | 2018-09-30 22:00 | NUR ---
ABLE TOO LIT BUTTOCKS FROM THE BED WITH TRAPEZE. STILL USED INCENTIVE SPIROMETER .
[2018-10-01] VITALS: BP 108/80
--- NOTE | 2018-10-01 | NUR ---
PT STILL AWAKE. WATCHING TV. ASKED IF IN PAIN AND HE SAID NO. WILL CONTINUE TO MONITOR.
[2018-10-01] MEDS: HYDROcodone/APAP 5/325 MG 1 TAB TAB PO PRN ×2 (00:48→08:54)
--- NOTE | 2018-10-01 00:48 | NUR ---
PT IS AWAKE AND C/O SOME DISCOMFORT/PAIN FROM RT HIP SURGERY. MEDICATED WITH NORCO ORDERED. WILL CONTINUE TO MONITOR.,
--- NOTE | 2018-10-01 01:48 | NUR ---
MADE ROUNDS ,PT SLEEPING WELL. NO S/S OF ANY DISCOMFORT NOTED.
--- NOTE | 2018-10-01 02:30 | NUR ---
PT AWAKE. DUE TO PT STILL HERE WAITING FOR BED TO [facility], A NEW IV ACCESS STARTED ON THE LT HAND G#22, CLEAR AND PATENT.
--- NOTE | 2018-10-01 04:30 | NUR ---
PT IS ASLEEP. NO S/S OF ANY DISCOMFORT NOR PAIN NOTED.
--- NOTE | 2018-10-01 07:09 | NUR ---
WILL ENDORSE PT IN STABLE CONDITION TO AM NURSE FOR CONTINUITY OF CARE.
--- NOTE | 2018-10-01 07:10 | NUR ---
RECEIVED REPORT FROM LAW ENFORCEMENT OFFICER NURSE. PATIENT IS ALERT AND ORIENTED X4. DENIES PAIN AT THIS TIME. RESPIRATIONS ARE EVEN AND UNLABORED. IV INTACT, PATENT, INFUSING IVF. PLAN OF CARE WAS REVIEWED WITH PATIENT. PATIENT VERBALIZED UNDERSTANDING. SAFETY MEASURES IN PLACE, CALL LIGHT WITHIN REACH. WILL CONTINUE TO MONITOR.
[2018-10-01 08:00] VITALS: BP 101/67
[2018-10-01] MEDS: NACL 0.9% 1,000 ML IV SCH (08:52)
[2018-10-01] MEDS: NEOMYCIN/POLYMYXIN/BACITRACIN OIN 15 GM TUBE TP SCH (08:55)
--- NOTE | 2018-10-01 09:26 | NUR ---
CALLED [facility] [phone] SPOKE WITH ADOLFO BED CONTROL REGARDING A ROOM NUMBER, TRISTAN STATED SHE STILL WAITING FROM THE [facility] INSURANCE AUTHORIZATION AND WILL CALL SOON SHE GETS THE AUTH
--- NOTE | 2018-10-01 11:43 | NUR ---
10/01/18 RD INITIAL ASSESSMENT COMPLETED PLEASE REFER TO NUTRITION ASSESSMENT UNDER CARE ACTIVITY FOR ESTIMATED NUTRITIONAL NEEDS. 1. CONTINUE REGULAR DIET TOLERATED 2. HEALTH SHAKE BID WILL BE OFFERED BY FNS 3. RD TO FOLLOW-UP 3-5 DAYS, MODERATE RISK JARED GONZALEZ RD
[2018-10-01 16:00] VITALS: BP 112/72
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
--- NOTE | 2018-10-01 19:27 | NUR ---
ENDORSED TO GRAPHITE GRINDER NURSE FOR CONTINUITY OF CARE. PATIENT IS STABLE.
[2018-10-01] MEDS: MELATONIN 3 MG TAB PO PRN (21:33)
--- NOTE | 2018-10-01 21:33 | NUR ---
PT. STILL AWAKE AT THIS TIME AND REQUESTED FOR MELATONIN P.O. PT. A/O X 4. ABLE TO VERBALIZE NEEDS WELL. WILL ADMINISTER REQUESTED. IVF NS DISCONTINUED VERBALIZED BY RESIDENT MD. WITH ME . PT. AWARE OF IT AND AGREES WITH DISCONTINUE .
--- NOTE | 2018-10-01 22:30 | NUR ---
PT. RESTLESS AND VERBALIZING BOREDNESS. WANTING TO BE DISCHARGED. ENCOURAGED TO WAIT RT JAVA PORTAL DEVELOPER ATTENDING TO HIS TRANSFER [facility]. FAMILY MEMBERS IN HERE VISITING. DENIES PAIN AT THIS TIME. IN BETWEEN WEDGE PILLOW IN PLACE.
[2018-10-02 00:26] VITALS: BP 117/75
--- NOTE | 2018-10-02 00:28 | NUR ---
VITAL SIGNS TAKEN. SLEEPING. WOKE UP EASILY. GOOD AFFECT. ABLE TO VERBALIZE WELL WITH ME. CALL LIGHT WITH IN REACH AND ENCOURAGED TO CALL FOR ANY HELP HE MAY NEED. "OK".
--- NOTE | 2018-10-02 02:00 | NUR ---
PT. AWAKE AT THIS TIME AND WATCHING TV. ENCOURAGED TO GO BACK TO SLEEP. "OK"
--- NOTE | 2018-10-02 05:17 | NUR ---
CHECKED ON PT. SLEEPING WELL. CALL LIGHT WITH IN REACH.
--- NOTE | 2018-10-02 06:16 | NUR ---
PT. REFUSED TO HAVE AM PERSONAL HYGIENE . STATED" I AM GOOD" AWAKE AND WATCHING TV AT THIS TIME. ABLE TO CARRY A CONVERSATION WELL. CALL LIGHT WITH IN REACH. GOOD AFFECT.
--- NOTE | 2018-10-02 07:20 | NUR ---
Received report from pm nurse Mindi. Pt asleep, respirations even & nonlabored. Call light within reach.
[2018-10-02 08:00] VITALS: BP 114/72
--- NOTE | 2018-10-02 09:45 | NUR ---
Pt ambulating via fww with PT. No c/o pain/discomfort. No signs of distress.
--- NOTE | 2018-10-02 12:10 | NUR ---
Received call from Marina (granddaughter) inquiring about transfer to [facility]. Informed Marina that we are still awaiting insurance authorization & bed availability at [facility]. Verbalized understanding.
--- NOTE | 2018-10-02 15:50 | NUR ---
CALLED PAT AT [facility] (TEL#s: [phone] AND [phone]) TO FOLLOW UP WITH THE BED, NO ANSWER. VOICEMAIL MESSAGE LEFT FOR BOTH TEL #s, AWAITING FOR CALL BACK.
[2018-10-02 16:00] VITALS: BP 121/83
--- NOTE | 2018-10-02 16:16 | NUR ---
FAMILY IS UPSET BECAUSE THEY SAID THE NURSE SAID THEY ARE WAITING FOR A ROOM, AND FAMILY CALLED [facility] AND [facility] SAID THEY HAVE A ROOM BUT DONT HAVE AUTHORIZATION. CALLED [facility] AT [phone], SPOKE TO MARIELY FROM ADMISSIONS, SHE SAID SHE TOLD THE FAMILY THAT THEY ARE WAITING FOR AUTHORIZATION FROM INSURANCE FOR IN PATIENT STAY. SHE SAID SINCE HIS INSURANCE IS FROM OUT OF STATE THAT IT MAY TAKE AWHILE. SHE ALSO SAID SHE WONT GET A HOLD OF INSURANCE TILL THURSDAY. WENT INTO THE ROOM AND TOLD THE PATIENT THAT WE HAVE TO WAIT FOR AUTHORIZATION FOR INSURANCE. HE ASKED IF HE CAN GO HOME, I EXPLAINED TO HIM THAT IT WOULD BE CONSIDERED AMA AND HE WILL NOT BE ABLE TO GO TO [facility] AFTER LEAVING AND HE SHOULD WAIT SO HE CAN GET REHAB AND GET BETTER. HE SAID HE FEELS LIKE HE IS GETTING WEAKER IN BED, NURSE SAID PT CLEARED HIM TO WALK. TOLD PATIENT HE CAN WALK W ASSISTANCE AND ASKED WHAT ELSE WE CAN DO TO MAKE HIM COMFORTABLE. HE WANTS SOMA AT BEDTIME, MICKY THE NURSE IS AWARE AND WILL TELL RESIDENTS. PATIENT AGREES TO WAIT AND SEE ABOUT AUTHORIZATION ON THURSDAY, HE IS UPSET THAT PLACEMENT IS TAKING TOO LONG. MICKY, THE NURSE IS AT BEDSIDE
--- NOTE | 2018-10-02 16:20 | NUR ---
Pt verbalized that he wants Soma to help him sleep at night. Per pt, he used to take a low dose of Soma at home (unable to remember dose). Dr. Hernandez notified of pt request & will speak with pt.
--- NOTE | 2018-10-02 16:54 | NUR ---
Pt requested to walk outside. Confirmed with charge nurse, per charge nurse pt can walk in unit but not outside. Per granddaughter, they can help amb with pt & refused assistance. FWW at pt's bedside.
[2018-10-02] MEDS: HYDROcodone/APAP 5/325 MG 1 TAB TAB PO PRN (18:14)
--- NOTE | 2018-10-02 19:25 | NUR ---
REPORT GIVEN TO PM NURSE SHI. PT IN BED, FAMILY AT BEDSIDE. CALL LIGHT WITHIN REACH.
--- NOTE | 2018-10-02 19:28 | NUR ---
RECEIVED FROM AM RN PT. IS AMBULATING WITH DAUGHTER IN HALLWAY. PER AM RN RESIDENT SAID OK TO AMBULATE AROUND. ABLE TO VERBALIZE NEEDS WELL. NO SOB. DENIES PAIN AT THIS TIME. PT. STILL AMBULATING AT THIS TIME.
--- NOTE | 2018-10-02 19:45 | NUR ---
TALKED WITH PT. AND REMINDED HIM THAT HE STILL HAS NO BM AT T HIS TIME. OFFERED LAXATIVE. PT. REFUSED "I PREFER TO GO BM ON MY OWN TIME AND THIS IS REALLY ME ON MY NORMAL ROUTINE" "I DON'T GO BM EVERYDAY" PT. ABLE TO PASS GAS BUT NO BM. ADAMANTLY REFUSED OFFER OF LAXATIVES.
[2018-10-02] MEDS ORDERED: CYCLOBENZAPRINE 10 MG TAB PO SCH (21:00)
--- NOTE | 2018-10-02 22:00 | NUR ---
ASSISTED TO RESTROOM TO URINATE. PT. ABLE TO WALK WITH WALKER BY HIMSELF. "I FEEL MUCH BETTER THAT I CAN STAND UP NOW." NO PAIN COMPLAINTS DONE AT THIS TIME. ABLE TO VERBALIZE WELL.
[2018-10-02 22:43] VITALS: BP 122/76
[2018-10-02] MEDS ORDERED: CARISOPRODOL 350 MG TAB PO ONE (23:00)
[2018-10-02] MEDS ORDERED: HYDROcodone/APAP 5/325 MG 1 TAB TAB PO PRN (23:40)
[2018-10-02] MEDS ORDERED: MORPHINE SULFATE 2 MG/ML SYR IVP PRN (23:40)
--- NOTE | 2018-10-03 00:10 | NUR ---
STILL AWAKE AND WATCHING TV. GOOD AFFECT. PT. ABLE TO VERBALIZE SIMPLE NEEDS. SEEN STAND UP AND USE WALKER TO RESTROOM BY HIMSELF. INDEPENDENT. PREFERS TO BE NOT ASSISTED BY HOLDING HIM.
[2018-10-03] MEDS: CARISOPRODOL 350 MG TAB PO SCH ×2 (00:18→21:51)
--- NOTE | 2018-10-03 02:45 | NUR ---
SLEEPING. NO RESTLESSNESS. CALL LIGHT WITH IN REACH.
--- NOTE | 2018-10-03 04:32 | NUR ---
SLEEPING. NO RESTLESSNESS. CALL LIGHT WITH IN REACH.
--- NOTE | 2018-10-03 06:33 | NUR ---
SLEEPING. WAKES UP EASILY WHEN CALLED BY NAME. REFUSED TO BE DISTURBED FOR AM PERSONAL HYGIENE. A/O X 4. WILL ENDORSE TO THE NEXT RN FOR CONTINUITY OF CARE.
--- NOTE | 2018-10-03 07:30 | NUR ---
Received report from pm nurse Mindi. Pt resting in bed, awake, no c/o discomfort, no signs of distress. Call light within reach.
[2018-10-03 08:00] VITALS: BP 110/78
--- NOTE | 2018-10-03 08:10 | NUR ---
Received call from granddaughter Marina with request to speak with physician re: discharge plans. Dr Hernandez notified & agree to call family.
[2018-10-03] MEDS: DOCUSATE SODIUM 100 MG GELCAP PO SCH ×3 (09:11→21:50)
--- NOTE | 2018-10-03 11:15 | NUR ---
Pt asleep in bed, respirations even & nonlabored, FLACC 0. Call light within reach.
[2018-10-03 16:00] VITALS: BP 113/75
--- NOTE | 2018-10-03 16:30 | NUR ---
Pt sitting up at edge of bed, watching TV. No c/o pain or discomfort. Offered assistance with toileting/ambulation/any needs. Pt states "I'm ok." Encouraged pt to call for assistance as needed. Pt agreed. Call light within reach.
--- NOTE | 2018-10-03 19:30 | NUR ---
Report given to pm nurse Leona.
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
[2018-10-03 20:00] VITALS: BP 115/83
--- NOTE | 2018-10-03 21:00 | NUR ---
REFUSED TO TAKE LAXATIVES, COLACE. COLACE WASTED PT DID NOT TAKE IT.EXPLAINED THE RISKS AND BENEFITS. HAD NO BM SINCE August. DR. JAIN
[2018-10-03] MEDS: MELATONIN 3 MG TAB PO PRN (21:51)
[2018-10-04 04:00] VITALS: BP 118/83
--- NOTE | 2018-10-04 07:29 | NUR ---
RECEIVED REPORT FROM MANAGER INTEGRITY NURSE WENDY FOR CONTINUITY OF CARE. PT IN STABLE CONDITION. RESPIRATIONS EVEN AND UNLABORED. SAFETY MEASURES IN PLACE. CALL LIGHT AT BEDSIDE. BED IN LOW POSITION. BED ALARM ON. WILL CONTINUE TO MONITOR.
[2018-10-04] MEDS: DOCUSATE SODIUM 100 MG GELCAP PO SCH (09:00)
--- NOTE | 2018-10-04 10:15 | NUR ---
PT LYING IN BED SLEEPING IN STABLE CONDITION. RESPIRATIONS EVEN AND UNLABORED. BED IN LOW POSITION. BED ALARM ON. CALL LIGHT AT BEDSIDE. WILL CONTINUE TO MONITOR.
--- NOTE | 2018-10-04 10:41 | NUR ---
CALLED [facility] SPOKE WITH [employer] AND FAXED ALL THE INFORMATION ,PER [employer] WILL CALL BACK WHEN BED AVAILABLE
--- NOTE | 2018-10-04 12:17 | NUR ---
CALLED [facility] AND SPOKE WITH DAVY FAX ALL THE INFO FOR AUTH AND STATED IT TAKES 2 HRS TO REVIEW THE CASE AND WILL CALL BACK
--- NOTE | 2018-10-04 12:20 | NUR ---
PER PATIENT AND HIS SISTER IN LAW KAELA, IF PT CAN'T GO TO [facility], PATIENT WANTS TO GO TO HIS SISTER IN LAW [facility] IN [place] WITH HOME HEALTH PHYSICAL THERAPY, PT ALSO REQUESTS SHOWER CHAIR AND WALKER, AD[address]ESS [id number] [facility] [place] [place] [address] [facility] [phone], , DRAWER IN [place] AND DR DALTON NOTIFIED OF PATIENT'S REQUEST.
--- NOTE | 2018-10-04 12:24 | NUR ---
PT LYING IN BED WITH FAMILY AT BEDSIDE. RESPIRATIONS EVEN AND UNLABORED. BED IN LOW POSITION. BED ALARM ON. CALL LIGHT AT BEDSIDE. WILL CONTINUE TO MONITOR.
--- NOTE | 2018-10-04 14:11 | NUR ---
PT LYING IN BED IN STABLE CONDITION. RESPIRATIONS EVEN AND UNLABORED. BED IN LOW POSITION. BED ALARM ON. CALL LIGHT AT BEDSIDE. WILL CONTINUE TO MONITOR.
--- NOTE | 2018-10-04 15:54 | NUR ---
CALLED [facility] SPOKE WITH GRACE ,EXPLAINED THAT PATIENT IS STAYING WITH HIS SISTER FOR ONE WEEK AND RETURN TO HIS HOME IN [place] NEXT WEEK. PROVIDE GRACE SISTER'S ADDRESS AND PHONE NUMBER [id number] [place] [address] # [phone] . EXPLAIN TO PATIENT THE ARRANGEMENT PT VERBALIZED UNDERSTANDING.
[2018-10-04 16:00] VITALS: BP 122/79
--- NOTE | 2018-10-04 16:55 | NUR ---
GAVE DISCHARGE INSTRUCTIONS AND PRESCRIPTION TO TAKE TO HOME PHARMACY PT VERBALIZED UNDERSTANDING OF INSTRUCTIONS. IV REMOVED, LUMEN INTACT. ID BANDS REMOVED. PICTURES TAKEN OF WOUND. PT REFUSED WHEELCHAIR. ESCORTED PT TO LOBBY USING WALKER IN STABLE CONDITION. FAMILY MEMBER WAITING WITH CAR.
--- NOTE | 2018-10-06 11:01 | NUR ---
I RECEIVED A CALL FROM [facility] THAT HE COULDN'T PROVIDE THE PHYSICAL THERAPY BECAUSE OF INSURANCE DENIAL. GRACE WAS TRYING TO GET THE AUTH FROM [facility] WHICH WAS [facility] AND [facility] INSURANCE [facility]. CALLED [facility] AND VERIFIED THAT PENDING AUTHORIZATION FOR 12 VIST IN 30 DAYS. SPOKE WITH ZOIE FROM [facility] AND RECEIVED AUTH FOR PHYSICAL THERAPY #[id number] . CALLED [facility] AND PROVIDE THE AUTH # FOR 12 VISITS FOR 30 DAYS AND WILL 11/06/18 IF PT NEEDS MORE THERAPY CAN CONTACT THE PCP AND CAN CONTINUE ANOTHER VISIT. GRACE WILL CALL AND F/U WITH PATIENT.
== END 2018-10-04 16:55 | disposition home health service (06) | DRG 470 ==
LOC: MED 09:30 → MMU 12:46
PROVIDERS: ADMIT General Practice; ATTEND General Practice
PROC: 3E0234Z Introduction of Serum, Toxoid and Vaccine into Muscle, Percutaneous Approach (ICD-10-PCS; 2018-09-26)
PROC: 0SRR0JZ Replacement of Right Hip Joint, Femoral Surface with Synthetic Substitute, Open Approach (ICD-10-PCS; principal; 2018-09-29)
PROC: 3E0234Z Introduction of Serum, Toxoid and Vaccine into Muscle, Percutaneous Approach (ICD-10-PCS; 2018-09-30)
DX: S72.011A Unspecified intracapsular fracture of right femur, initial encounter for closed fracture (principal); J98.11 Atelectasis; J44.9 Chronic obstructive pulmonary disease, unspecified; K80.20 Calculus of gallbladder without cholecystitis without obstruction; K52.9 Noninfective gastroenteritis and colitis, unspecified; W18.30XA Fall on same level, unspecified, initial encounter; E83.42 Hypomagnesemia; M47.817 Spondylosis without myelopathy or radiculopathy, lumbosacral region; Z87.891 Personal history of nicotine dependence; Y93.K1 Activity, walking an animal; Z23 Encounter for immunization; Z88.6 Allergy status to analgesic agent; Y92.89 Other specified places as the place of occurrence of the external cause; Y99.8 Other external cause status
CPT/HCPCS: 36415; 70450; 71045; 71250; 71260; 73090; 73501; 80048; 80053; 80305; 81003; 82150; 83036; 83690; 83735; 83880; 84100; 84134; 84436; 84443; 84484; 85025; 85610; 85730; 86886; 86900; 86901; 87081; 88305; 88311; 90471; 90715; 90732; 93005; 96361; 96374; 96375; 97110; 97116; 97161-GP; 97530; 99285; C1776; G0482; J0690; J1100; J1170; J1200; J1644; J2060; J2270; J2405; J2704; J3010; J3490; J7030; J7060; Q0092; Q9967